=== PATIENT | male | born 2000 | race Caucasian/White ===

== ENCOUNTER 2022-01-22 14:28 | Emergency (ER) | payer OTHER ==
[~2022-01-22 14:28] MED LIST: BUSPAR5 MG PO; FLUOXETINE HYDR20 M1 PO; MINOCYCLINE HC100 MG PO
== END 2022-01-22 16:00 | disposition left against medical advice (07) ==
LOC: ED 14:28
DX: Z53.21 Procedure and treatment not carried out due to patient leaving prior to being seen by health care provider (principal)

== ENCOUNTER 2022-02-05 12:14 | Emergency (ER) | payer OTHER ==
[~2022-02-05] VITALS: Wt 68.0 kg
== END 2022-02-05 15:38 | disposition home or self-care (01) ==
LOC: ED 12:14
DX: S80.02XA Contusion of left knee, initial encounter (principal); Z79.899 Other long term (current) drug therapy; Z90.49 Acquired absence of other specified parts of digestive tract; Z90.89 Acquired absence of other organs; W22.8XXA Striking against or struck by other objects, initial encounter; Y93.89 Activity, other specified; Y92.89 Other specified places as the place of occurrence of the external cause; Y99.8 Other external cause status

== ENCOUNTER 2022-09-16 07:59 | Emergency (ER) | payer OTHER ==
[~2022-09-16] VITALS: Ht 177.8 cm; Wt 68.0 kg
[2022-09-16 09:51] LABS: BASO # 0.1 10*3/uL (0.0-0.1); BASO % 0.6 % (0.0-1.0); EOS # 0.2 10*3/uL (0.0-0.4); EOS % 2.6 % (1.0-4.0); HEMATOCRIT 41.4 % (42.0-52.0); LYMPH # 2.5 10*3/uL (1.3-4.4); LYMPH % 30.7 % (27.0-41.0); MEAN CELL VOLUME 87.3 fl (80.0-94.0); MEAN CORPUSCULAR HGB 30.6 pg (27.0-31.0); MEAN PLATELET VOLUME 11.6 fl (9.6-12.3); MONO # 0.7 10*3/uL (0.1-1.0); MONO % 8.2 % (3.0-9.0); NEUT # 4.6 10*3/uL (2.3-7.9); NEUT % 57.7 % (47.0-73.0); PLATELET COUNT AUTOMATED 192 10*3/uL (130-400); RED BLOOD COUNT 4.74 10*6/uL (4.50-5.90); RED CELL DISTRI WIDTH 12.3 % (0-14.5); WHITE BLOOD COUNT 8.1 10*3/uL (4.8-10.8)
[2022-09-16 10:11] LABS: ALKALINE PHOSPHATASE 86 U/L (46-116); BUN 11 mg/dl (9-23); CHLORIDE 105 mmol/L (98-107); POTASSIUM 3.7 mmol/L (3.4-5.1); SGPT/ALT 11 U/L (10-49); TOTAL PROTEIN 6.8 gm/dL (6.0-8.0)
== END 2022-09-16 11:43 | disposition home or self-care (01) ==
LOC: ED 07:59
PROVIDERS: Emergency Medicine
DX: R51.9 Headache, unspecified (principal); Z90.89 Acquired absence of other organs; Z90.49 Acquired absence of other specified parts of digestive tract

== ENCOUNTER 2022-12-23 23:07 | Emergency (ER) | payer OTHER ==
[~2022-12-23] VITALS: Ht 172.7 cm; Wt 64.9 kg
[2022-12-23] MEDS ORDERED: PREDNISONE50 MG PO (23:28)
== END 2022-12-23 23:30 | disposition home or self-care (01) ==
LOC: ED 23:07
DX: T78.49XA Other allergy, initial encounter (principal); Z90.89 Acquired absence of other organs; Z90.49 Acquired absence of other specified parts of digestive tract; X58.XXXA Exposure to other specified factors, initial encounter

== ENCOUNTER 2022-12-24 01:34 | Emergency (ER) | payer OTHER ==
[~2022-12-24] VITALS: Ht 170.1 cm; Wt 52.2 kg
[~2022-12-24 01:34] MED LIST changes: +PREDNISONE50 MG PO
[2022-12-24 01:50] LABS: BASO # 0.1 10*3/uL (0.0-0.1); BASO % 0.7 % (0.0-1.0); EOS % 0.2 % (1.0-4.0); HEMATOCRIT 49.7 % (42.0-52.0); LYMPH # 1.1 10*3/uL (1.3-4.4); LYMPH % 12.9 % (27.0-41.0); MEAN CELL VOLUME 87.2 fl (80.0-94.0); MEAN CORPUSCULAR HGB 31.1 pg (27.0-31.0); MEAN CORPUSCULAR HGB CONC 35.6 g/dl (33.0-37.0); MEAN PLATELET VOLUME 11.3 fl (9.6-12.3); MONO # 0.2 10*3/uL (0.1-1.0); MONO % 2.5 % (3.0-9.0); NEUT % 82.6 % (47.0-73.0); PLATELET COUNT AUTOMATED 223 10*3/uL (130-400); RED CELL DISTRI WIDTH 13.2 % (0-14.5); WHITE BLOOD COUNT 8.5 10*3/uL (4.8-10.8)
[2022-12-24 02:05] LABS: BUN 7 mg/dl (9-23); CHLORIDE 108 mmol/L (98-107); POTASSIUM 4.1 mmol/L (3.4-5.1)
[2022-12-24 02:07] LABS: ETHYL ALCOHOL 238.7 mg/dl (<3)
[2022-12-24 07:58] LABS: BILIRUBIN Negative (Negative); BLOOD Negative (Negative); CLARITY Clear (Clear); COLOR Yellow (Yellow); GLUCOSE Trace (Negative); KETONE Trace (Negative); LEUKO ESTERASE Negative (Negative); NITRITE Negative (Negative); PH 7.5 (4.5-8.0); SPECIFIC GRAVITY 1.015 (1.001-1.030)
[2022-12-24 08:07] LABS: URINE AMPHETAMINES Negative (1000ng/ml); URINE BARBITURATES Negative (200ng/ml); URINE BENZODIAZEPINES Negative (200ng/ml); URINE CANNABINOIDS (THC) Negative (50ng/ml); URINE COCAINE Negative (300ng/ml); URINE METHADONE Negative (300ng/ml); URINE OPIATES Negative (300ng/ml); URINE PHENCYCLIDINE Negative (25ng/ml)
[2022-12-24 08:16] LABS: BACTERIA TRACE; EPITHELIAL CELLS 0-2; MUCOUS TRACE
== END 2022-12-24 09:18 | disposition home or self-care (01) ==
LOC: ED 01:34
PROVIDERS: Emergency Medicine
DX: F10.129 Alcohol abuse with intoxication, unspecified (principal); Z90.89 Acquired absence of other organs; Z98.890 Other specified postprocedural states; Z90.49 Acquired absence of other specified parts of digestive tract; Z87.891 Personal history of nicotine dependence; Y90.0 Blood alcohol level of less than 20 mg/100 ml

== ENCOUNTER 2023-12-22 23:02 | Emergency (ER) | payer OTHER ==
[~2023-12-22] VITALS: Ht 177.8 cm; Wt 72.6 kg
[2023-12-22] MEDS ORDERED: Ketorolac Tromethamine 60 MG/2 ML VIAL IM ONE (23:20)
== END 2023-12-22 23:29 | disposition home or self-care (01) ==
LOC: ED 23:02
DX: J06.9 Acute upper respiratory infection, unspecified (principal); Z90.89 Acquired absence of other organs; Z90.49 Acquired absence of other specified parts of digestive tract

== ENCOUNTER 2024-01-14 11:32 | Emergency (ER) | payer OTHER ==
[~2024-01-14] VITALS: Ht 177 cm; Wt 72.6 kg
[2024-01-14] MEDS ORDERED: PREDNISONE20 M1 PO (11:48)
[2024-01-14] MEDS ORDERED: methylPREDNISolone sod succ 125 MG VIAL IM ONE (11:50)
== END 2024-01-14 12:05 | disposition home or self-care (01) ==
LOC: ED 11:32
DX: J30.9 Allergic rhinitis, unspecified (principal); Z79.899 Other long term (current) drug therapy

== ENCOUNTER 2024-01-28 01:25 | Emergency (ER) | payer OTHER ==
[~2024-01-28] VITALS: Ht 177.8 cm; Wt 72.6 kg
[~2024-01-28 01:25] MED LIST changes: +PREDNISONE20 M1 PO
[2024-01-28] MEDS ORDERED: AMOX-CLAV 875-1 EACH PO (02:14)
[2024-01-28] MEDS ORDERED: Amoxicillin/Clavulanate Pota 875 MG TAB PO ONE (02:15)
== END 2024-01-28 02:29 | disposition home or self-care (01) ==
LOC: ED 01:25
DX: J02.9 Acute pharyngitis, unspecified (principal); Z90.89 Acquired absence of other organs; Z90.49 Acquired absence of other specified parts of digestive tract

== ENCOUNTER 2024-08-22 16:17 | Emergency (ER) | payer OTHER ==
[~2024-08-22] VITALS: Ht 177.8 cm; Wt 74.8 kg
[~2024-08-22 16:17] MED LIST changes: +AMOX-CLAV 875-1 EACH PO
[2024-08-22 17:13] LABS: BASO % 0.4 % (0.0-1.0); EOS # 0.1 10*3/uL (0.0-0.4); EOS % 1.8 % (1.0-4.0); HEMATOCRIT 44.3 % (42.0-52.0); MEAN CELL VOLUME 88.1 fl (80.0-94.0); MEAN CORPUSCULAR HGB 30.6 pg (27.0-31.0); MEAN CORPUSCULAR HGB CONC 34.8 g/dl (33.0-37.0); MEAN PLATELET VOLUME 11.2 fl (9.6-12.3); MONO # 0.7 10*3/uL (0.1-1.0); MONO % 8.8 % (3.0-9.0); NEUT # 5.1 10*3/uL (2.3-7.9); NEUT % 66.6 % (47.0-73.0); PLATELET COUNT AUTOMATED 222 10*3/uL (130-400); RED BLOOD COUNT 5.03 10*6/uL (4.50-5.90); RED CELL DISTRI WIDTH 12.7 % (0-14.5); WHITE BLOOD COUNT 7.6 10*3/uL (4.8-10.8)
[2024-08-22 17:28] LABS: BUN 11 mg/dl (9-23); CHLORIDE 106 mmol/L (98-107)
[2024-08-22] MEDS ORDERED: MELOXICAM15 MG PO (17:43)
== END 2024-08-22 17:47 | disposition home or self-care (01) ==
LOC: ED 16:17
PROVIDERS: Internal Medicine
DX: S30.22XA Contusion of scrotum and testes, initial encounter (principal); Z90.49 Acquired absence of other specified parts of digestive tract; Z98.890 Other specified postprocedural states; W22.8XXA Striking against or struck by other objects, initial encounter; Y93.89 Activity, other specified; Y92.89 Other specified places as the place of occurrence of the external cause; Y99.8 Other external cause status

== ENCOUNTER 2024-09-25 03:30 | Emergency (ER) | payer OTHER ==
[~2024-09-25] VITALS: Ht 177.8 cm; Wt 81.6 kg
[~2024-09-25 03:30] MED LIST changes: +MELOXICAM15 MG PO
[2024-09-25] MEDS ORDERED: AVPAK AZITHROM250 MG PO (05:06)
[2024-09-25] MEDS ORDERED: MEDROL DOSEPAK4 MG PO (05:06)
== END 2024-09-25 05:11 | disposition home or self-care (01) ==
LOC: ED 03:30
DX: J40 Bronchitis, not specified as acute or chronic (principal); Z20.822 Contact with and (suspected) exposure to COVID-19; F17.210 Nicotine dependence, cigarettes, uncomplicated; Z90.89 Acquired absence of other organs; Z90.49 Acquired absence of other specified parts of digestive tract

== ENCOUNTER 2025-08-22 08:05 | Emergency (ER) | payer OTHER ==
[~2025-08-22] VITALS: Ht 177.8 cm; Wt 86.2 kg
[~2025-08-22 08:05] MED LIST changes: +AVPAK AZITHROM250 MG PO; +MEDROL DOSEPAK4 MG PO
[2025-08-22] MEDS ORDERED: KENALOG 0.1% LO60 ML T (08:39)
[2025-08-22] MEDS ORDERED: BENADRYL ALLERG25 M5 PO (08:39)
== END 2025-08-22 08:44 | disposition home or self-care (01) ==
LOC: ED 08:05
DX: L30.9 Dermatitis, unspecified (principal); R22.31 Localized swelling, mass and lump, right upper limb